=== PATIENT | female | born 1955 ===

== ENCOUNTER 2018-03-31 12:00 | Inpatient (IN) | payer OTHER ==
[~2018-03-31] VITALS: Ht 152.4 cm; Wt 59.0 kg
[2018-03-31] MEDS ORDERED: CLONAZEPAM0.5 MG PO (15:59)
[2018-04-11] MEDS ORDERED: OMEPRAZOLE20 MG PO (11:48)
[2018-04-11] MEDS ORDERED: INTESTINEX680 M1 PO (11:48)
[2018-04-11] MEDS ORDERED: TYLENOL ARTHRI650 MG PO (11:48)
== END 2018-04-11 12:48 | disposition home or self-care (01) | DRG 331 ==
LOC: O/R 04-08 05:30 → SURG 04-08 10:00 → SURH 04-08 10:37 → SURG 04-08 12:00 → SURH 04-09 14:28
PROVIDERS: Surgery
PROC: 0DJD8ZZ Inspection of Lower Intestinal Tract, Via Natural or Artificial Opening Endoscopic (ICD-10-PCS; 2018-04-08)
PROC: 0DTN4ZZ Resection of Sigmoid Colon, Percutaneous Endoscopic Approach (ICD-10-PCS; principal; 2018-04-08 10:00)
DX: K57.32 Diverticulitis of large intestine without perforation or abscess without bleeding (principal)